=== PATIENT | female | born 2000 | race Caucasian/White ===

== ENCOUNTER → 2020-04-10 14:26 | Outpatient (BNVA) | payer OTHER, SELFPAY | PROVIDERS: Family Provider Family Medicine; PCP Family Medicine; Visit Provider Emergency Medicine | DX: Z20.828 Contact with and (suspected) exposure to other viral communicable diseases (principal) | CPT/HCPCS: 87635 ==

== ENCOUNTER 2020-10-01 16:00 | Emergency (ER) | payer OTHER, SELFPAY ==
[2020-10-01 16:09] VITALS: BP 125/59; PULSE 102; RESP 18; O2SAT 100; BMI 26.1
--- NOTE | 2020-10-01 16:26 | ED_ITS ---
HPI - General Adult General: Chief complaint: General Medical Stated complaint: H/A LOW BP Time Seen by Provider: 10/01/20 16:18 History of Present Illness: HPI narrative: Patient is a pleasant young female who is 17 weeks who just recently moved back here. Looking to establish at the OB clinic here at [facility] [place] Patient states she had a headache yesterday and Tylenol ibuprofen was not helping very much and her mom took her blood pressure expecting to be high and it was low at that time. Patient said the headache is feeling better today her blood pressure doing better but she went to get checked out. Denies any other problems. complaint: Headache Onset (ago): day(s) Associated symptoms: Reports no associated symptoms; Deny chest pain, dyspnea, headache(s), nausea, rash or vomiting Review of Systems Const: Denies: fever(s), chills or body aches Eyes: Denies: change in vision or blurry vision ENMT: Denies: throat pain or nasal congestion Card: Denies: chest pain or dyspnea on exertion Resp: Denies: dyspnea, productive cough or non-productive cough GI: Denies: abdominal pain, nausea or vomiting Musc: Denies: extremity pain Skin/Breast: Denies: rash Neuro: Denies: headache(s) Psych: Denies: anxiety or depression Boom/Lymph: Denies: easy bruising PFSH ED PFSH: Family History (Updated 04/10/20 @ 13:05 by Mary Anne Rodriguez LPN) Mother Hypertension Father Hypertension Other Family history of premature coronary artery disease Denies family history of Diabetes Dementia Female Reproductive History: Date of last menstrual period: 05/22/20 Physical Exam Const: COMMON NORMALS: no acute distress, average body habitus and patient oriented x3 HENMT: COMMON NORMALS: normocephalic HEAD & SCALP: normal to inspection and normocephalic FACE & SINUS: normal facial exam Eye: COMMON NORMALS: conjunctivae normal GENERAL EYE: appearance normal, both eyes and all related structures CONJUNCTIVA: Yes conjunctivae normal Neck/C-Spine: COMMON NORMALS: no JVD Chest: COMMONS NORMALS: normal inspection of the chest Resp: COMMON NORMALS: normal respiratory effort and clear to auscultation bilaterally AUSCULTATION: clear to auscultation bilaterally Cardio: COMMON NORMALS: no JVD, regular rate and regular rhythm RATE: regular rate RHYTHM: regular rhythm GI: COMMON NORMALS: Normal to inspection, nondistended, normoactive bowel sounds present Back/Pelvis: GENERAL BACK: Yes other (Mild trapezius pain left and right side) Extremity: COMMON NORMALS: normal to inspection and full ROM Neuro: COMMON NORMALS: patient oriented x3, moves all extremities, no focal motor deficits and no sensory deficits noted Course Vital Signs: Vital signs: Vital Signs Pulse Rate 102 H 10/01/20 16:09 Respiratory Rate 18 10/01/20 16:09 Blood Pressure 125/59 10/01/20 16:09 Pulse Oximetry 100 10/01/20 16:09 Discharge Plan Discharge Prescriptions: No Action No Known Home Medications RF: 0 Coding Level of Care Code ED Power Originator for Chg Fwd Exam Comprehensive
[2020-10-01] MEDS: acetaminophen 500 mg Tablet 1000 MG PO (16:55)
[2020-10-01 16:58] LABS: Blood Urine Neg (Negative); Glucose Urine UA Norm (Normal); Ketones Urine Negative (Negative); Protein Urine Neg (Negative); Specific Gravity, Urine 1.025 (1.005-1.030); Urine Appearance Hazy (CLEAR); Urine Color Yellow (Yellow); pH Urine 5 (5-7)
[2020-10-01 16:59] LABS: Add Urine Microscopic? YES; Bilirubin Urine Neg (Negative); Leukocyte Esterase Urine Trace (Negative); Nitrate Urine Positive (Negative); Urobilinogen Urine 1 mg/dL (Negative)
[2020-10-01 17:01] LABS: Add Urine Culture? Yes; Bacteria Urine 4+ /hpf; Mucus Urine 2+ /hpf; Squamous Epithelial Cell Urine 0-4 /hpf (0-5)
--- NOTE | 2020-10-01 17:12 | PC.NURSE ---
heart tones obtained at this time. heart tones 163.
[2020-10-01 17:19] LABS: Basophils % 0.3 %; Eosinophils # 0.1 10^3/uL (0.0-0.8); Eosinophils % 0.7 %; Hematocrit 36.7 % (37.0-47.0); Hemoglobin 12.1 g/dL (11.5-15.3); Lymphocytes # 2.1 10^3/uL (1.5-6.5); Lymphocytes % 20.8 %; Mean Corpuscular Hemoglobin 28.4 pg (28.0-34.0); Mean Corpuscular Volume 86.2 fL (81-99); Mean Platelet Volume 9.7 fL (7.4-10.4); Monocytes # 0.6 10^3/uL (0.2-0.9); Monocytes % 5.9 %; Neutrophils # 7.31 10^3/uL (1.8-8.0); Nucleated Red Blood Cells % 0 %; Platelet Count 326 10^3/cmm (130-400); Red Blood Count 4.26 10^6/uL (4.1-5.3); Red Cell Distribution Width 12.6 % (12.1-15.1); White Blood Count 10.2 10^3/uL (4.5-13.0)
[2020-10-01 17:45] LABS: Alanine Aminotransferase 12 U/L (0-33); Albumin Level 4.3 g/dL (3.5-5.2); Alkaline Phosphatase 52 IU/L (35-105); Anion Gap 15.6 (5-19); Aspartate Amino Transferase 10 U/L (0-32); Blood Urea Nitrogen 10 mg/dL (6-20); Carbon Dioxide 22 mmol/L (22-29); Chloride 103 mmol/L (98-107); Globulin 2.6 g/dL (1.3-4.6); Glomerular Filtration Rate 203.5 mL/min (90-130); Glucose 89 mg/dL (65-115); Osmolality Calculated 283 mOsm/kg (285-295); Potassium 3.6 mmol/L (3.5-5.1); Sodium 137 mmol/L (136-145); Total Bilirubin 0.2 mg/dL (0.15-1.2); Total Protein 6.9 g/dL (6.6-8.7)
[2020-10-01] MEDS: cephALEXin 500 mg Capsule PO (17:50)
[2020-10-01 17:51] VITALS: PULSE 100; RESP 18; O2SAT 100
[2020-10-01 18:08] VITALS: BP 120/61; PULSE 85; O2SAT 98
== END 2020-10-01 18:10 | disposition home or self-care (01) ==
PROVIDERS: Emergency Provider Nurse Practitioner Family; PCP Family Medicine
DX: O26.892 Other specified pregnancy related conditions, second trimester (principal); R51.9 Headache, unspecified; Z3A.17 17 weeks gestation of pregnancy
CPT/HCPCS: 36415; 80053; 81001; 84702; 85025; 87077; 87086; 87186; 99283

== ENCOUNTER → 2020-12-16 14:14 | Outpatient (BNVA) | payer OTHER, SELFPAY | PROVIDERS: PCP Family Medicine; Visit Provider Registered Nurse Neonatal Intensive Care | DX: Z20.822 Contact with and (suspected) exposure to COVID-19 (principal) | CPT/HCPCS: 87635 ==

== ENCOUNTER 2024-08-03 18:28 | Emergency (ER) | payer BC, MEDICAID, SELFPAY ==
[2024-08-03 18:38] VITALS: BP 121/89; PULSE 102; TEMP 37.8; O2SAT 99; BMI 25.4
--- NOTE | 2024-08-03 18:50 | W.ED.URI ---
HPI - URI/Sore Throat General: Chief Complaint: Upper Respiratory Infection Stated Complaint: sore throat, swollen gums and tonsils, n/v/f Time Seen by Provider: 08/03/24 18:43 Source: patient Mode of arrival: ambulatory Limitations: no limitations History of Present Illness: Patient is a 23-year-old female who presents the emergency department complaining of sore throat for the past day. She was at walk-in yesterday, tested negative for strep but was started on doxycycline. She notes that taking doxycycline has caused her to have severe vomiting and has caused her gums to swell. She notes that it is too painful to eat or drink due to swallowing, also notes she has been running fevers at home. Denies taking any medications for the fever. She comments that she has had tonsillitis on a yearly basis, however has never seen ENT for this. States that she does not know of any allergies to other antibiotics or other medications in general. Denies any trouble breathing, chest pain, or other symptoms at this time. MD elicited complaint: fever and sore throat Pertinent past history: other (recurrent tonsillitis) Onset (ago): day(s) Consistency: constant Severity: moderate Able to tolerate fluids by mouth: Yes Exacerbating factors: swallowing Associated symptoms: Reports fever(s), nausea and vomiting; Deny abdominal pain, chills, chest pain, diarrhea, ear or mastoid pain or headache(s) Treatments prior to arrival: antibiotics Related Data Previous Rx's ?Medication ?Instructions ?Recorded amoxicillin 500 mg tablet 1,000 mg (2 x 500 mg) PO BID 10 08/03/24 days #40 tabs Allergies Allergy/AdvReac Type Severity Reaction Status Date / Time doxycycline Allergy ADR-Gastrointestinal Verified 08/03/24 18:42 Upset Review of Systems General: Reports: 10 or more systems reviewed and unremarkable except in HPI and below Const: Reports: fever(s); Denies: chills or fatigue Eyes: Denies: change in vision ENMT: Reports: throat pain, enlarged tonsils and odynophagia; Denies: uvular edema, ear or mastoid pain or nasal discharge Card: Denies: chest pain, palpitations, swelling of feet/ankles or lightheadedness Resp: Denies: dyspnea, productive cough or wheezing GI: Reports: nausea and vomiting; Denies: abdominal pain, diarrhea or constipation : Denies: flank pain, difficulty voiding, dysuria or urinary frequency Musc: Denies: neck pain, back pain or joint pain Skin/Breast: Denies: rash Neuro: Denies: headache(s), numbness in extremities or weakness in extremities PFSH ED PFSH: Family History Mother Hypertension Father Hypertension Other Family history of premature coronary artery disease Denies family history of Diabetes Dementia Physical Exam Const: COMMON NORMALS: no acute distress and healthy appearing GENERAL APPEARANCE: cooperative, comfortable and well developed HENMT: COMMON NORMALS: normocephalic, atraumatic, hearing grossly normal bilaterally, Normal external nose present and Normal nasal mucous membranes and turbinates present HEAD & SCALP: normal to inspection, normocephalic and atraumatic FACE & SINUS: normal facial exam and sinuses nontender NOSE: Normal external nose present, Normal nares present, No nasal polyps present and Normal nasal mucous membranes and turbinates present MOUTH: Normal oral and palatal mucosa present THROAT: uvula midline and abnormal tonsil bilateral erythema, exudates and hypertrophy; no uvular edema Eye: COMMON NORMALS: EOMs intact bilaterally, conjunctivae normal and normal visual padgett by confrontation GENERAL EYE: appearance normal, both eyes and all related structures CONJUNCTIVA: Yes conjunctivae normal Neck/C-Spine: COMMON NORMALS: full ROM, supple and no meningeal signs GENERAL: Yes normal visual inspection and Yes lymphadenopathy Lymphadenopathy location: anterior cervical Chest: COMMONS NORMALS: normal inspection of the chest Resp: COMMON NORMALS: normal respiratory effort and clear to auscultation bilaterally EFFORT & INSPECTION: Yes able to speak in complete sentences AUSCULTATION: clear to auscultation bilaterally Cardio: COMMON NORMALS: regular rate, regular rhythm, S1 normal heart sound present and S2 normal heart sound present RATE: regular rate RHYTHM: regular rhythm HEART SOUNDS: S1 normal heart sound present, S2 normal heart sound present, no gallops, no murmurs and no rubs GI: COMMON NORMALS: Soft to palpation and No hepatosplenomegaly present INSPECTION: Yes normal to inspection PALPATION: Yes Soft to palpation and Yes No hepatosplenomegaly present Extremity: COMMON NORMALS: normal to inspection, full ROM and capillary refill normal Neuro: MENINGEAL SIGNS: Yes no meningeal signs Skin: COMMON NORMALS: no rashes or lesions noted GENERAL SKIN EXAM: no rashes or lesions noted Course Vital Signs: Vital signs: Vital Signs Temperature 100.0 F H 08/03/24 18:38 Pulse Rate 98 08/03/24 19:00 Respiratory Rate 16 08/03/24 19:00 Blood Pressure 146/88 08/03/24 19:00 Pulse Oximetry 100 08/03/24 19:00 Oxygen Delivery Me thod Room Air 08/03/24 19:00 MDM - URI/Sore Throat Medical Decision Making Patient presenting for tonsil swelling and pain, stating this feels like recurrent tonsillitis that she gets every year. Was started on doxycycline by urgent care where she had a negative strep swab, states that she had a reaction to this so she stopped taking it. There was swelling, redness, and exudate on exam however her swab was negative again, will be sent for a culture but she will be switched to amoxicillin as she does not report any allergy to this. She was also given a shot of Decadron here in the ED and states she does feel better. Ultimately will also refer her to ENT for further evaluation and told her to return if she has any trouble swallowing her secretions or trouble breathing. Stable for discharge however at this time. Lab Data Laboratory Results Group A Strep Rapid Negative (Negative) 08/03/24 19:03 No radiology studies performed this visit Discharge Plan Discharge Patient Disposition: Home Clinical Impression: Acute tonsillitis Qualifiers: Pharyngitis/tonsillitis etiology: unspecified etiology Qualified Code(s): J03.90 - Acute tonsillitis, unspecified Condition: Stable Prescriptions: New amoxicillin 500 mg tablet 1,000 mg PO BID 10 Days Qty: 40 0RF Discharge Orders: Discharge ED (Routine); Ordered 08/03/24 Ordered By: Cirilo Hassan Referrals: Chaitanya Worrell MD [Primary Care Provider] - Patient Instructions: Tonsillitis (ED) Activity Restrictions/Additional Instructions: Take the amoxicillin as prescribed. Salt water gargles. Follow-up with ENT. Take ibuprofen and Tylenol. If you have any trouble breathing, cannot handle your own saliva, or any other concerning symptoms please return to the ED as we discussed. Print Language: Sammarinese Coding Level of Care Code ED Glass Scullion for Feli Ballard
[2024-08-03 19:00] VITALS: BP 146/88; PULSE 98; RESP 16; O2SAT 100
[2024-08-03] MEDS: dexamethasone 10 mg/mL INJ IM (19:00)
[2024-08-03 19:39] LABS: Rapid Strep A Test Negative (Negative)
[2024-08-03 19:53] VITALS: BP 107/88; PULSE 99; O2SAT 99
== END 2024-08-03 20:00 | disposition home or self-care (01) ==
PROVIDERS: Emergency Provider Physician Assistant; PCP Family Medicine
DX: J03.90 Acute tonsillitis, unspecified (principal)
CPT/HCPCS: 87081; 87880; 96372; 99284; J1100